=== PATIENT | male | born 1995 | race Caucasian/White ===

== ENCOUNTER 2018-10-01 12:35 | Emergency (ER) | payer MEDICARE, MEDICAID ==
[~2018-10-01] VITALS: Ht 177.8 cm; Wt 111.4 kg
[~2018-10-01 12:35] MED LIST: ABILIFY 15MG TA15 MG PO; ABILIFY5 MG PO; ATARAX10 MG PO; ATIVAN 0.50.5 MG/TAB PO; ATIVAN1 MG PO; BUPROPION HCL150 M2 PO; CLONAZEPAM PO; DEPAKOTE125 MG PO; DESYREL 50MG50 MG PO; LEVOTHYROXINE0.05 MG PO; LUVOX100 MG PO; LUVOX25 MG PO; MELATONIN; MELATONIN 0.3MG PO; MELATONIN1 MG PO; UNABLE; VYVANSE20 MG PO; ZOLOFT; ZOLOFT 50MG50 MG PO
[2018-10-01 12:45] VITALS: BP 138/71; TEMP 97.4
[2018-10-01] MEDS ORDERED: COLACE 100100 MG/CAP (12:56)
[2018-10-01 13:55] VITALS: PULSE 91
== END 2018-10-01 14:00 | disposition home or self-care (01) ==
LOC: COL.ER 12:35
DX: S09.90XA Unspecified injury of head, initial encounter (principal); F43.10 Post-traumatic stress disorder, unspecified; R40.2412 Glasgow coma scale score 13-15, at arrival to emergency department; Z96.22 Myringotomy tube(s) status; Z88.1 Allergy status to other antibiotic agents; W10.9XXA Fall (on) (from) unspecified stairs and steps, initial encounter; Y92.009 Unspecified place in unspecified non-institutional (private) residence as the place of occurrence of the external cause

== ENCOUNTER 2021-04-09 15:07 | Outpatient (RCR) | payer MEDICARE, MEDICAID ==
[~2021-04-09 15:07] MED LIST changes: +COLACE 100100 MG/CAP
== END 2021-04-23 ==
LOC: MKS.ESL.PT
DX: M54.2 Cervicalgia (principal); M54.50 Low back pain, unspecified; G89.29 Other chronic pain; R26.89 Other abnormalities of gait and mobility

== ENCOUNTER → 2021-06-21 | Outpatient (RCR) | payer MEDICARE, MEDICAID | END | disposition home or self-care (01) | LOC: MKS.ESL.PT | DX: M54.2 Cervicalgia (principal); M54.50 Low back pain, unspecified; G89.29 Other chronic pain; R26.89 Other abnormalities of gait and mobility ==

== ENCOUNTER → 2021-07-07 | Outpatient (CLI) | payer MEDICARE, MEDICAID | LOC: COL.RAD 07:47 | DX: M25.552 Pain in left hip (principal); R22.42 Localized swelling, mass and lump, left lower limb | CPT/HCPCS: A9575 ==

== ENCOUNTER → 2021-09-09 13:53 | Outpatient (RCR) | payer MEDICARE, MEDICAID | LOC: MKS.ESL.PT 06-22 15:00 | DX: M54.50 Low back pain, unspecified (principal); M25.552 Pain in left hip; R53.1 Weakness ==

== ENCOUNTER 2021-09-15 13:30 | Outpatient (RCR) | payer MEDICARE, MEDICAID | END 2021-09-21 | disposition home or self-care (01) | LOC: MKS.ESL.PT | DX: D49.2 Neoplasm of unspecified behavior of bone, soft tissue, and skin (principal) ==

== ENCOUNTER 2021-10-11 15:00 | Outpatient (RCR) | payer MEDICARE, MEDICAID | END 2021-10-21 | disposition home or self-care (01) | LOC: MKS.ESL.PT | DX: D49.2 Neoplasm of unspecified behavior of bone, soft tissue, and skin (principal) ==

== ENCOUNTER 2022-02-16 15:30 | Outpatient (RCR) | payer MEDICARE, MEDICAID | END 2022-02-21 | disposition home or self-care (01) | LOC: MKS.ESL.PT | DX: M25.562 Pain in left knee (principal) ==

== ENCOUNTER 2022-08-19 12:45 | Outpatient (RCR) | payer MEDICARE, MEDICAID | END 2022-08-21 | disposition home or self-care (01) | LOC: MKS.ESL.PT | DX: M25.562 Pain in left knee (principal); R26.89 Other abnormalities of gait and mobility; Z98.890 Other specified postprocedural states ==

== ENCOUNTER 2022-12-09 15:00 | Outpatient (RCR) | payer MEDICARE, MEDICAID | END 2022-12-22 | disposition home or self-care (01) | LOC: MKS.ESL.PT | DX: M85.062 Fibrous dysplasia (monostotic), left lower leg (principal); R29.898 Other symptoms and signs involving the musculoskeletal system ==

== ENCOUNTER 2022-12-30 15:00 | Outpatient (RCR) | payer MEDICARE, MEDICAID | END 2023-01-21 | disposition home or self-care (01) | LOC: MKS.ESL.PT | DX: M85.062 Fibrous dysplasia (monostotic), left lower leg (principal); R29.898 Other symptoms and signs involving the musculoskeletal system ==

== ENCOUNTER 2023-10-18 10:53 | Outpatient (RCR) | payer MEDICARE, OTHER | END 2023-10-22 | disposition home or self-care (01) | LOC: MKS.ESL.PT | DX: M85.062 Fibrous dysplasia (monostotic), left lower leg (principal); Z96.9 Presence of functional implant, unspecified ==

== ENCOUNTER 2023-11-17 13:00 | Outpatient (RCR) | payer MEDICARE, OTHER | END 2023-11-22 | disposition home or self-care (01) | LOC: MKS.ESL.PT | DX: M85.062 Fibrous dysplasia (monostotic), left lower leg (principal); R26.9 Unspecified abnormalities of gait and mobility; M25.552 Pain in left hip; Z96.9 Presence of functional implant, unspecified ==

== ENCOUNTER 2023-12-18 14:00 | Outpatient (RCR) | payer OTHER, MEDICARE | END 2023-12-23 | disposition home or self-care (01) | LOC: MKS.ESL.PT | DX: M85.062 Fibrous dysplasia (monostotic), left lower leg (principal); M25.552 Pain in left hip; R26.9 Unspecified abnormalities of gait and mobility; Z96.9 Presence of functional implant, unspecified ==